=== PATIENT | female | born 1960 | race Two or more races ===

== ENCOUNTER → 2018-01-11 | Outpatient (CLI) | payer OTHER ==
--- NOTE | 2018-01-11 17:02 | P.STRESS ---
- Stress Test Note Stress Test Results/Findings: Exam Performed: stress test Exam Date: 01/11/18 Reason for Exam: Chest Pain, Short of Breath Height: 5 ft Weight: 67.585 kg Protocol: Isai Stage: 2 Duration of Exercise: 6:47 Resting Heart Rate: 66 Resting Blood Pressure: 111/63 Maximum Achieved Heart Rate: 152 Maximum Achieved Blood Pressure: 155/93 85% PMHR: 139 100% PMHR: 164 METS: 7.0 Technologist Comment: Stress Test Results/Findings: Baseline heart rate 66 beats a minute, Baseline blood pressure 111/60 3 million his mercury baseline 12-lead ECG shows normal sinus rhythm with early repolarization abnormality inferolaterally Patient x-rays and a Isai protocol for 6 minutes 47 seconds achieving a peak heart rate of 152 beats a minute which is 92% appropriate maximum heart rate for age. Normal blood pressure response to exercise There was no definite ECG evidence for ischemia no arrhythmias noted Impression Average excess capacity No ECG evidence for ischemia or arrhythmia
== END | disposition home or self-care (01) ==
LOC: RADNMMAIN 10:45
PROVIDERS: ATTEND Family Medicine
DX: R07.9 Chest pain, unspecified (principal); R06.00 Dyspnea, unspecified
CPT/HCPCS: 93017